=== PATIENT | female | born 1955 | race Hispanic/Latino ===

== ENCOUNTER 2020-11-20 05:36 | Inpatient (IN) | payer SELFPAY ==
[~2020-11-20] VITALS: Ht 165.1 cm; Wt 63.5 kg
[2020-11-20] MEDS ORDERED: CEFAZOLIN SODIUM 1 GM VIAL IVP PRN (11:15)
[2020-11-20 11:38] LABS: HEMATOCRIT 38.7 % (36-48); MEAN CORPUSCULAR HEMOGLOBIN 27.8 pg (27.0-33.0); MEAN CORPUSCULAR HGB CONC 32.3 g/dL (32.0-36.0); RED BLOOD CELL COUNT(AUTO) 4.5 MIL/uL (4.00-5.50); RED CELL DISTRIBUTION WIDTH 13.2 % (11.0-15.5); WHITE BLOOD COUNT (AUTO) 5.5 K/uL (4.8-10.8)
[2020-11-20 11:47] LABS: HEMOGLOBIN A1C 7.8 % (4.0-6.0)
[2020-11-20 11:50] LABS: INR 1.14 (0.85-1.15); PROTHROMBIN TIME 12.3 SEC (9.6-11.6)
[2020-11-20 11:52] LABS: PARTIAL THROMBOPLASTIN TIME 44.5 SEC (26.3-35.5)
[2020-11-20 11:57] LABS: ALBUMIN 3.2 g/dL (3.5-5.0); BILIRUBIN,TOTAL 0.6 mg/dL (0.2-1.0); CREATININE 1.1 mg/dL (0.5-1.5); POTASSIUM 3.7 mmol/L (3.5-5.1); TOTAL PROTEIN, SERUM 6.8 g/dL (6.0-8.3)
[2020-11-20 12:03] VITALS: BP 159/74
[2020-11-20] MEDS ORDERED: HEPARIN 5,000 UNIT VIAL SQ PRN (13:45)
[2020-11-20] MEDS ORDERED: HEPARIN 25,000 UNITS/250ML D5W 250 ML IV SCH (13:45)
[2020-11-20] MEDS ORDERED: HEPARIN 5,000 UNIT VIAL SQ SCH (14:00)
[2020-11-20 16:00] VITALS: BP 148/70
[2020-11-20 20:00] VITALS: BP 166/75
[2020-11-20] MEDS: METOPROLOL TARTRATE 25 MG TAB PO SCH (21:03)
[2020-11-20] MEDS: GUAIFENESIN-DM 200/20 MG 10 ML PO PRN (21:03)
[2020-11-20] MEDS: ATORVASTATIN 40 MG TABLET PO SCH (21:03)
[2020-11-20] MEDS: FUROSEMIDE 20MG VIAL IV SCH (23:38)
[2020-11-21] VITALS (38 sets, daily range): BP systolic 86–173; BP diastolic 37–80
[2020-11-21] MEDS ORDERED: AMINOCAPROIC ACID 5,000MG VIAL 15,000 MG in 0.9% NACL 500ML IV.SOLN 420 ML IV PRN (07:00)
[2020-11-21] MEDS ORDERED: NOREPINEPHRINE BITARTRATE 8 MG in DEXTROSE 5%-WATER 250 ML IV PRN (07:00)
[2020-11-21] MEDS: ASPIRIN 325MG EC TAB PO SCH (07:20)
[2020-11-21] MEDS: METOPROLOL TARTRATE 25 MG TAB PO SCH (07:22)
[2020-11-21] MEDS ORDERED: CEFAZOLIN SODIUM 1 GM VIAL ONE ×2 (07:26→12:46)
[2020-11-21] MEDS ORDERED: PAPAVERINE HCL 30 MG/ML 2ML VIAL ONE (07:26)
[2020-11-21] MEDS ORDERED: NITROGLYCERIN 50MG/D5W 250ML 1 BOT ONE (07:54)
[2020-11-21] MEDS ORDERED: ESMOLOL HCL 10 MG/ML 10 ML VIAL ONE (08:26)
[2020-11-21] MEDS ORDERED: LIDOCAINE PF 100MG/5ML (2%) SYRINGE 5ML ONE (08:26)
[2020-11-21] MEDS ORDERED: PROTAMINE SULFATE 10 MG/ML 25ML VIAL IV ONE (08:26)
[2020-11-21] MEDS ORDERED: HEPARIN 10,000 UNIT/10ML (1,000 UNIT/ML) VIAL ONE ×2 (08:26→10:00)
[2020-11-21] MEDS ORDERED: NOREPINEPHRINE BITARTRATE 1 MG/1 ML ML IV ONE (08:27)
[2020-11-21] MEDS ORDERED: MIDAZOLAM HCL 1 MG/ML 2ML VIAL ONE (08:27)
[2020-11-21] MEDS ORDERED: FENTANYL CITRATE PF 50 MCG/1 ML 20ML VIAL IJ ONE (08:27)
[2020-11-21] MEDS ORDERED: SODIUM BICARB 50MEQ 50ML VIAL 150 ML ONE (08:27)
[2020-11-21] MEDS ORDERED: PROPOFOL 10 MG/ML 20ML VIAL IV ONE (08:27)
[2020-11-21] MEDS ORDERED: EPINEPHRINE PF 1MG AMP ONE (08:27)
[2020-11-21] MEDS ORDERED: AMINOCAPROIC ACID 5,000MG VIAL ONE (08:27)
[2020-11-21] MEDS ORDERED: ROCURONIUM 10MG/1ML SYR 10 MG/ML ML ONE (08:28)
[2020-11-21] MEDS ORDERED: KETAMINE HCL 100 MG/ML 5ML VIAL IJ ONE (08:31)
[2020-11-21] MEDS ORDERED: 0.9%NACL 1000ML 1,000 ML IV ONE (08:32)
[2020-11-21 09:57] LABS: ABG BASE EXCESS 2.1 mmol/L (-2.0-3.0); ABG HCO3 26.8 mmol/L (21.0-28.0); ABG OXYGEN SATURATION 99.2 % (95.0-99.0); ABG PCO2 42 mmHg (32-45)
[2020-11-21] MEDS ORDERED: AMIODARONE 150MG VIAL ONE ×2 (11:17→11:20)
[2020-11-21] MEDS ORDERED: LIDOCAINE 2G/250ML 250 ML IV PRN (11:30)
[2020-11-21] MEDS ORDERED: LIDOCAINE 2G/250ML 250 ML IV ONE (11:35)
[2020-11-21 11:39] LABS: ABG HCO3 14.1 mmol/L (21.0-28.0); ABG OXYGEN SATURATION 98.7 % (95.0-99.0); ABG PCO2 29 mmHg (32-45)
[2020-11-21] MEDS ORDERED: CITRIC ACID/SODIUM CITRATE 30 ML UDCUP ONE (11:52)
[2020-11-21 11:59] LABS: ABG BASE EXCESS 3.3 mmol/L (-2.0-3.0); ABG HCO3 26.3 mmol/L (21.0-28.0); ABG OXYGEN SATURATION 98.5 % (95.0-99.0); ABG PCO2 33 mmHg (32-45)
[2020-11-21] MEDS ORDERED: EPINEPHRINE PF 1MG AMP 10 MG in DEXTROSE 5%-WATER 250 ML IV PRN (12:15)
[2020-11-21] MEDS ORDERED: CALCIUM GLUC 1GM 1 GM in 0.9%NACL 50ML 50 ML IV PRN (12:15)
[2020-11-21] MEDS ORDERED: MAGNESIUM 2GM PREMIX 50ML 50 ML IV PRN (12:15)
[2020-11-21] MEDS ORDERED: ACETAMINOPHEN 650 MG SUPPOSITORY RC PRN (12:15)
[2020-11-21] MEDS ORDERED: ALBUMIN (HUMAN) 5% 250 ML IV PRN (12:15)
[2020-11-21] MEDS ORDERED: GLUCAGON 1MG KIT 1 MG ML IM PRN (12:15)
[2020-11-21] MEDS ORDERED: AMINOCAPROIC ACID 5,000MG VIAL 15,000 MG in 0.9% NACL 250ML 250 ML IV SCH (12:15)
[2020-11-21] MEDS ORDERED: 0.9%NACL 1000ML 1,000 ML IV SCH (12:15)
[2020-11-21] MEDS ORDERED: TRAMADOL HCL 50 MG TABLET PO PRN (12:15)
[2020-11-21] MEDS ORDERED: MORPHINE 2 MG SYG IV PRN ×2 (12:15→13:00)
[2020-11-21] MEDS ORDERED: PROPOFOL 1000 MG/100 ML 100 ML IV PRN (12:15)
[2020-11-21] MEDS ORDERED: MORPHINE 4 MG SYG IV PRN (12:15)
[2020-11-21] MEDS ORDERED: DEXTROSE 50%-WATER 50 ML DISP.SYRIN IV PRN (12:15)
[2020-11-21] MEDS ORDERED: POTASSIUM PHOS 15 mMOL+NS250ML 250 ML IV PRN (12:15)
[2020-11-21] MEDS ORDERED: NOREPINEPHRIN 4MG/NS 250ML 250 ML IV PRN (12:15)
[2020-11-21] MEDS ORDERED: NITROGLYCERIN 50MG/D5W 250ML 250 BOT IV SCH (12:15)
[2020-11-21] MEDS ORDERED: 0.9% NACL 500ML IV.SOLN 500 ML IV SCH (12:15)
[2020-11-21] MEDS ORDERED: 0.9%NACL 10ML VIAL IVP PRN (12:15)
[2020-11-21 13:04] LABS: ABG BASE EXCESS -3.4 mmol/L (-2.0-3.0); ABG HCO3 21.5 mmol/L (21.0-28.0); ABG OXYGEN SATURATION 98.2 % (95.0-99.0); ABG PCO2 38 mmHg (32-45)
[2020-11-21 13:54] LABS: HEMATOCRIT 30.1 % (36-48); MEAN CORPUSCULAR HEMOGLOBIN 28.2 pg (27.0-33.0); MEAN CORPUSCULAR HGB CONC 32.6 g/dL (32.0-36.0); MEAN CORPUSCULAR VOLUME 86.7 fL (79-99); RED BLOOD CELL COUNT(AUTO) 3.47 MIL/uL (4.00-5.50); RED CELL DISTRIBUTION WIDTH 13.2 % (11.0-15.5); WHITE BLOOD COUNT (AUTO) 22.4 K/uL (4.8-10.8)
[2020-11-21 14:05] LABS: INR 1.3 (0.85-1.15); PROTHROMBIN TIME 13.8 SEC (9.6-11.6)
[2020-11-21 14:06] LABS: CREATININE 1.3 mg/dL (0.5-1.5); MAGNESIUM 2.3 mg/dL (1.80-2.40); PARTIAL THROMBOPLASTIN TIME 26.4 SEC (26.3-35.5); PHOSPHORUS 2.5 mg/dL (2.5-4.9)
[2020-11-21 14:08] LABS: POTASSIUM 2.7 mmol/L (3.5-5.1)
[2020-11-21] MEDS: POTASSIUM CHLORIDE 20MEQ/100ML 100 ML IV PRN ×7 (15:41→22:25)
[2020-11-21] MEDS: SODIUM BICARB 50MEQ 50ML VIAL IV PRN ×3 (15:46→16:37)
[2020-11-21] MEDS: EPINEPHRINE PF 1MG AMP 10 MG in 0.9% NACL 250ML 240 ML IV PRN (15:46)
[2020-11-21] MEDS: CEFAZOLIN SODIUM 1 GM VIAL IV SCH (17:24)
[2020-11-21 17:45] LABS: ABG BASE EXCESS -0.1 mmol/L (-2.0-3.0); ABG HCO3 25.1 mmol/L (21.0-28.0); ABG OXYGEN SATURATION 96.5 % (95.0-99.0); ABG PCO2 43 mmHg (32-45)
[2020-11-21] MEDS ORDERED: PHARMACY COMMUNICATION MISC SCH (19:30)
[2020-11-21 19:56] LABS: ABG BASE EXCESS 0.6 mmol/L (-2.0-3.0); ABG HCO3 28.1 mmol/L (21.0-28.0); ABG OXYGEN SATURATION 94.6 % (95.0-99.0); ABG PCO2 60 mmHg (32-45)
[2020-11-21] MEDS: ATORVASTATIN 40 MG TABLET PO SCH (20:08)
[2020-11-21] MEDS: FAMOTIDINE 20MG VIAL IV SCH (20:12)
[2020-11-21] MEDS: FUROSEMIDE 20MG VIAL IV SCH (21:00)
[2020-11-21 21:06] LABS: ABG BASE EXCESS 0.8 mmol/L (-2.0-3.0); ABG HCO3 27.7 mmol/L (21.0-28.0); ABG OXYGEN SATURATION 96.3 % (95.0-99.0); ABG PCO2 56 mmHg (32-45)
[2020-11-21 22:05] LABS: ABG BASE EXCESS 1.3 mmol/L (-2.0-3.0); ABG HCO3 27.4 mmol/L (21.0-28.0); ABG OXYGEN SATURATION 96.8 % (95.0-99.0); ABG PCO2 50 mmHg (32-45)
[2020-11-21] MEDS: INSULIN REGULAR, HUMAN 3ML 100 UNIT in 0.9%NACL 100ML 99 ML IV SCH ×2 (22:24)
[2020-11-21 23:55] LABS: ABG BASE EXCESS 2.3 mmol/L (-2.0-3.0); ABG HCO3 28.6 mmol/L (21.0-28.0); ABG PCO2 53 mmHg (32-45)
[2020-11-22] VITALS (29 sets, daily range): BP systolic 95–276; BP diastolic 39–102
[2020-11-22] MEDS: ACETAMINOPHEN 325 MG TAB PO PRN (00:15)
[2020-11-22] MEDS: CEFAZOLIN SODIUM 1 GM VIAL IV SCH ×2 (01:02→09:46)
[2020-11-22] MEDS: ONDANSETRON 4MG INJ IV PRN ×2 (01:32→07:41)
[2020-11-22 02:06] LABS: ABG BASE EXCESS 0.8 mmol/L (-2.0-3.0); ABG HCO3 26.4 mmol/L (21.0-28.0); ABG OXYGEN SATURATION 96.3 % (95.0-99.0); ABG PCO2 47 mmHg (32-45)
[2020-11-22] MEDS: POTASSIUM CHLORIDE 20MEQ/100ML 100 ML IV PRN (02:14)
[2020-11-22 04:10] LABS: ABG BASE EXCESS 3.1 mmol/L (-2.0-3.0); ABG HCO3 28.4 mmol/L (21.0-28.0); ABG OXYGEN SATURATION 95.9 % (95.0-99.0); ABG PCO2 47 mmHg (32-45)
[2020-11-22 04:11] LABS: HEMATOCRIT 29.6 % (36-48); MEAN CORPUSCULAR HEMOGLOBIN 27.2 pg (27.0-33.0); MEAN CORPUSCULAR HGB CONC 31.1 g/dL (32.0-36.0); MEAN CORPUSCULAR VOLUME 87.6 fL (79-99); RED BLOOD CELL COUNT(AUTO) 3.38 MIL/uL (4.00-5.50); RED CELL DISTRIBUTION WIDTH 13.9 % (11.0-15.5); WHITE BLOOD COUNT (AUTO) 17.7 K/uL (4.8-10.8)
[2020-11-22 04:25] LABS: INR 1.24 (0.85-1.15); PROTHROMBIN TIME 13.3 SEC (9.6-11.6)
[2020-11-22 04:26] LABS: PARTIAL THROMBOPLASTIN TIME 25.6 SEC (26.3-35.5)
[2020-11-22 04:31] LABS: CREATININE 1.3 mg/dL (0.5-1.5); MAGNESIUM 1.8 mg/dL (1.80-2.40); POTASSIUM 4.8 mmol/L (3.5-5.1)
[2020-11-22] MEDS ORDERED: PHARMACY COMMUNICATION MISC SCH ×3 (04:45→21:00)
[2020-11-22 08:50] LABS: ABG HCO3 29.9 mmol/L (21.0-28.0); ABG OXYGEN SATURATION 96.5 % (95.0-99.0); ABG PCO2 46 mmHg (32-45)
[2020-11-22] MEDS: ASPIRIN 325MG EC TAB PO SCH (09:00)
[2020-11-22] MEDS: FAMOTIDINE 20MG VIAL IV SCH ×2 (09:46→20:25)
[2020-11-22] MEDS: INSULIN REGULAR, HUMAN 3ML 100 UNIT in 0.9%NACL 100ML 99 ML IV SCH ×2 (17:40)
[2020-11-22] MEDS: ATORVASTATIN 40 MG TABLET PO SCH (20:25)
[2020-11-22] MEDS: TRAMADOL HCL 50 MG TABLET PO PRN (20:26)
[2020-11-22] MEDS: FUROSEMIDE 20MG VIAL IV SCH (23:03)
[2020-11-22] MEDS: EPINEPHRINE PF 1MG AMP 10 MG in 0.9% NACL 250ML 240 ML IV PRN (23:09)
[2020-11-23] VITALS (25 sets, daily range): BP systolic 106–153; BP diastolic 38–88
[2020-11-23 04:50] LABS: CREATININE 1.3 mg/dL (0.5-1.5); MAGNESIUM 2.7 mg/dL (1.80-2.40); POTASSIUM 4.9 mmol/L (3.5-5.1)
[2020-11-23 04:54] LABS: HEMATOCRIT 26.8 % (36-48); MEAN CORPUSCULAR HEMOGLOBIN 27.8 pg (27.0-33.0); MEAN CORPUSCULAR HGB CONC 30.2 g/dL (32.0-36.0); MEAN CORPUSCULAR VOLUME 92.1 fL (79-99); RED BLOOD CELL COUNT(AUTO) 2.91 MIL/uL (4.00-5.50); RED CELL DISTRIBUTION WIDTH 14.5 % (11.0-15.5); WHITE BLOOD COUNT (AUTO) 18.1 K/uL (4.8-10.8)
[2020-11-23] MEDS ORDERED: DEXTROSE 50%-WATER 50 ML DISP.SYRIN IV PRN (07:45)
[2020-11-23] MEDS ORDERED: GLUCAGON 1MG KIT 1 MG ML IM PRN (07:45)
[2020-11-23] MEDS ORDERED: ENOXAPARIN SODIUM 30 MG/0.3 ML SQ ONE (08:25)
[2020-11-23] MEDS ORDERED: FUROSEMIDE 20 MG TABLET ONE (08:26)
[2020-11-23] MEDS ORDERED: MIDODRINE HCL 5 MG TABLET ONE (08:27)
[2020-11-23] MEDS ORDERED: FAMOTIDINE 20MG TAB ONE (08:28)
[2020-11-23] MEDS ORDERED: METO25 PO (08:30)
[2020-11-23] MEDS: ASPIRIN 325MG EC TAB PO SCH (08:36)
[2020-11-23] MEDS: MIDODRINE HCL 5 MG TABLET PO SCH ×3 (08:38→20:43)
[2020-11-23] MEDS: ACETAMINOPHEN 325 MG TAB PO PRN (08:39)
[2020-11-23] MEDS: FUROSEMIDE 20 MG TABLET PO SCH ×2 (08:40→18:33)
[2020-11-23] MEDS: ENOXAPARIN SODIUM 30 MG/0.3 ML SQ SCH (08:41)
[2020-11-23] MEDS ORDERED: FAMOTIDINE 20MG TAB PO SCH (09:00)
[2020-11-23] MEDS: INSULIN HUMULIN R 100 UNIT/ML 3ML SQ SCH ×3 (11:30→20:23)
[2020-11-23] MEDS: TRAMADOL HCL 50 MG TABLET PO PRN (19:50)
[2020-11-23] MEDS: ATORVASTATIN 40 MG TABLET PO SCH (20:09)
[2020-11-23] MEDS: FUROSEMIDE 20MG VIAL IV SCH (23:38)
[2020-11-24] VITALS (22 sets, daily range): BP systolic 110–151; BP diastolic 45–70
[2020-11-24] MEDS ORDERED: AMIODARONE 900MG VIAL IV ONE (00:05)
[2020-11-24] MEDS ORDERED: AMIODARONE 150MG VIAL ONE (00:06)
[2020-11-24] MEDS ORDERED: 0.9%NACL 100ML 100 ML IV ONE (00:09)
[2020-11-24] MEDS ORDERED: AMIODARONE 900MG VIAL 150 MG in DEXTROSE 5%-WATER 100 ML IV SCH (00:15)
[2020-11-24] MEDS ORDERED: AMIODARONE 900MG VIAL 900 MG in DEXTROSE 5%-WATER 500 ML IV SCH (00:15)
[2020-11-24 04:36] LABS: HEMATOCRIT 24.5 % (36-48); MEAN CORPUSCULAR HEMOGLOBIN 28.3 pg (27.0-33.0); MEAN CORPUSCULAR HGB CONC 31.4 g/dL (32.0-36.0); MEAN CORPUSCULAR VOLUME 90.1 fL (79-99); RED BLOOD CELL COUNT(AUTO) 2.72 MIL/uL (4.00-5.50); WHITE BLOOD COUNT (AUTO) 14.8 K/uL (4.8-10.8)
[2020-11-24 04:44] LABS: CREATININE 1.4 mg/dL (0.5-1.5); POTASSIUM 4.5 mmol/L (3.5-5.1)
[2020-11-24] MEDS: INSULIN HUMULIN R 100 UNIT/ML 3ML SQ SCH ×4 (06:13→21:07)
[2020-11-24] MEDS: AMIODARONE 200 MG TABLET PO SCH ×2 (09:00→21:05)
[2020-11-24] MEDS: ENOXAPARIN SODIUM 30 MG/0.3 ML SQ SCH (09:19)
[2020-11-24] MEDS: ASPIRIN 325MG EC TAB PO SCH (09:20)
[2020-11-24] MEDS: METOPROLOL TARTRATE 25 MG TAB PO SCH ×2 (09:20→21:05)
[2020-11-24] MEDS: FUROSEMIDE 20 MG TABLET PO SCH ×2 (09:20→16:56)
[2020-11-24] MEDS: FUROSEMIDE 20MG VIAL IV SCH (15:47)
[2020-11-24] MEDS: ATORVASTATIN 40 MG TABLET PO SCH (21:05)
[2020-11-25 00:07] VITALS: BP 154/67
[2020-11-25 04:26] VITALS: BP 158/67
[2020-11-25 05:06] LABS: MEAN CORPUSCULAR HEMOGLOBIN 27.8 pg (27.0-33.0); MEAN CORPUSCULAR HGB CONC 31.9 g/dL (32.0-36.0); RED BLOOD CELL COUNT(AUTO) 2.99 MIL/uL (4.00-5.50); RED CELL DISTRIBUTION WIDTH 13.7 % (11.0-15.5); WHITE BLOOD COUNT (AUTO) 9.5 K/uL (4.8-10.8)
[2020-11-25 05:15] LABS: CREATININE 1.1 mg/dL (0.5-1.5); POTASSIUM 3.5 mmol/L (3.5-5.1)
[2020-11-25] MEDS: INSULIN HUMULIN R 100 UNIT/ML 3ML SQ SCH ×4 (07:30→20:47)
[2020-11-25 08:00] VITALS: BP 139/65
[2020-11-25] MEDS: METOPROLOL TARTRATE 25 MG TAB PO SCH ×3 (08:18→20:01)
[2020-11-25] MEDS: FUROSEMIDE 20 MG TABLET PO SCH ×2 (08:18→16:58)
[2020-11-25] MEDS: ASPIRIN 325MG EC TAB PO SCH (08:18)
[2020-11-25] MEDS: ENOXAPARIN SODIUM 30 MG/0.3 ML SQ SCH (08:19)
[2020-11-25] MEDS: AMIODARONE 200 MG TABLET PO SCH ×2 (08:19→20:00)
[2020-11-25 12:00] VITALS: BP 123/51
[2020-11-25 16:00] VITALS: BP 118/59
[2020-11-25] MEDS: GUAIFENESIN-DM 200/20 MG 10 ML PO PRN (16:58)
[2020-11-25] MEDS: POTASSIUM CHLORIDE 20MEQ/100ML 100 ML IV PRN (16:58)
[2020-11-25 20:00] VITALS: BP 141/65
[2020-11-25] MEDS: ATORVASTATIN 40 MG TABLET PO SCH (20:00)
[2020-11-25] MEDS: FUROSEMIDE 20MG VIAL IV SCH (23:15)
[2020-11-26] VITALS: BP 133/66
[2020-11-26 04:00] VITALS: BP 150/71
[2020-11-26 05:58] LABS: CREATININE 0.9 mg/dL (0.5-1.5); POTASSIUM 3.5 mmol/L (3.5-5.1)
[2020-11-26] MEDS: INSULIN HUMULIN R 100 UNIT/ML 3ML SQ SCH ×4 (07:06→22:00)
[2020-11-26] MEDS: ASPIRIN 325MG EC TAB PO SCH (07:29)
[2020-11-26] MEDS: ENOXAPARIN SODIUM 30 MG/0.3 ML SQ SCH (07:29)
[2020-11-26] MEDS: METOPROLOL TARTRATE 25 MG TAB PO SCH ×3 (07:30→20:10)
[2020-11-26] MEDS: AMIODARONE 200 MG TABLET PO SCH ×2 (07:30→20:10)
[2020-11-26] MEDS: FUROSEMIDE 20 MG TABLET PO SCH ×2 (07:30→16:05)
[2020-11-26 08:00] VITALS: BP 144/70
[2020-11-26 12:00] VITALS: BP 120/59
[2020-11-26 16:00] VITALS: BP 143/69
[2020-11-26] MEDS: GUAIFENESIN-DM 200/20 MG 10 ML PO PRN (16:05)
[2020-11-26] MEDS: ACETAMINOPHEN 325 MG TAB PO PRN (20:10)
[2020-11-26] MEDS: ATORVASTATIN 40 MG TABLET PO SCH (20:10)
[2020-11-26 22:44] VITALS: BP 131/60
[2020-11-26] MEDS: FUROSEMIDE 20MG VIAL IV SCH (23:24)
[2020-11-27] VITALS (7 sets, daily range): BP systolic 126–161; BP diastolic 58–75
[2020-11-27] MEDS: INSULIN HUMULIN R 100 UNIT/ML 3ML SQ SCH ×4 (07:01→20:40)
[2020-11-27] MEDS: AMIODARONE 200 MG TABLET PO SCH ×2 (07:12→20:37)
[2020-11-27] MEDS: ASPIRIN 325MG EC TAB PO SCH (07:12)
[2020-11-27] MEDS: FUROSEMIDE 20 MG TABLET PO SCH ×2 (07:12→16:17)
[2020-11-27] MEDS: METOPROLOL TARTRATE 25 MG TAB PO SCH ×2 (07:12→20:37)
[2020-11-27] MEDS: ENOXAPARIN SODIUM 30 MG/0.3 ML SQ SCH (07:13)
[2020-11-27] MEDS: ATORVASTATIN 40 MG TABLET PO SCH (20:37)
[2020-11-28] MEDS: ACETAMINOPHEN 325 MG TAB PO PRN (03:09)
[2020-11-28 05:00] VITALS: BP 118/99
[2020-11-28] MEDS: INSULIN HUMULIN R 100 UNIT/ML 3ML SQ SCH ×4 (07:30→20:56)
[2020-11-28] MEDS: FUROSEMIDE 20 MG TABLET PO SCH ×2 (08:45→16:27)
[2020-11-28] MEDS: ASPIRIN 325MG EC TAB PO SCH (08:45)
[2020-11-28] MEDS: AMIODARONE 200 MG TABLET PO SCH ×2 (08:46→20:51)
[2020-11-28] MEDS: ENOXAPARIN SODIUM 30 MG/0.3 ML SQ SCH (08:47)
[2020-11-28] MEDS: METOPROLOL TARTRATE 25 MG TAB PO SCH ×2 (09:00→20:51)
[2020-11-28 11:19] LABS: HEMATOCRIT 29.2 % (36-48); MEAN CORPUSCULAR HEMOGLOBIN 27.8 pg (27.0-33.0); MEAN CORPUSCULAR HGB CONC 32.2 g/dL (32.0-36.0); MEAN CORPUSCULAR VOLUME 86.4 fL (79-99); PLATELET COUNT (AUTO) 404 K/uL (130-400); RED BLOOD CELL COUNT(AUTO) 3.38 MIL/uL (4.00-5.50); RED CELL DISTRIBUTION WIDTH 14.6 % (11.0-15.5); WHITE BLOOD COUNT (AUTO) 11.4 K/uL (4.8-10.8)
[2020-11-28 11:25] LABS: CREATININE 1.1 mg/dL (0.5-1.5); POTASSIUM 3.7 mmol/L (3.5-5.1)
[2020-11-28 11:29] LABS: ALBUMIN 2.7 g/dL (3.5-5.0); BILIRUBIN,TOTAL 0.6 mg/dL (0.2-1.0); TOTAL PROTEIN, SERUM 6.2 g/dL (6.0-8.3)
[2020-11-28 11:41] LABS: LYMPHOCYTES % (MANUAL) 15 % (22-44); MAN.DIFF COMMENT-IMPRESSION MANUAL DIFFERENTIAL; MONOCYTES % (MANUAL) 6 % (2-9); PLATELET MORPHOLOGY COMMENT SLIGHT INCREASED; SEGMENTED NEUTROPHILS % 79 % (40-70)
[2020-11-28 16:00] VITALS: BP 134/33
[2020-11-28] MEDS ORDERED: AMIO200T44 PO (17:10)
[2020-11-28] MEDS ORDERED: ASPI-891 PO (17:10)
[2020-11-28] MEDS ORDERED: ATOR40TA69 PO (17:10)
[2020-11-28] MEDS ORDERED: FURO20TA6 PO (17:10)
[2020-11-28] MEDS ORDERED: METO25 PO (17:10)
[2020-11-28 20:35] VITALS: BP 151/76
[2020-11-28] MEDS: ATORVASTATIN 40 MG TABLET PO SCH (20:51)
== END 2020-11-28 20:55 | disposition home or self-care (01) | DRG 235 ==
LOC: 4DH 10:22 → 2CV 11-21 08:59 → PAH.CVR 11-21 13:44 → 2CV 11-21 14:25 → 2CH 11-22 16:56 → 4AH 11-24 18:00
PROVIDERS: ADMIT Thoracic Surgery (Cardiothoracic Vascular Surgery); ATTEND Thoracic Surgery (Cardiothoracic Vascular Surgery)
PROC: 5A09357 Assistance with Respiratory Ventilation, Less than 24 Consecutive Hours, Continuous Positive Airway Pressure (ICD-10-PCS; 2020-11-18)
PROC: 02120AW Bypass Coronary Artery, Three Arteries from Aorta with Autologous Arterial Tissue, Open Approach (ICD-10-PCS; principal; 2020-11-21 09:08)
PROC: 02100Z9 Bypass Coronary Artery, One Artery from Left Internal Mammary, Open Approach (ICD-10-PCS; 2020-11-21 09:08)
PROC: 5A02210 Assistance with Cardiac Output using Balloon Pump, Continuous (ICD-10-PCS; 2020-11-21 09:08)
PROC: 06BP4ZZ Excision of Right Saphenous Vein, Percutaneous Endoscopic Approach (ICD-10-PCS; 2020-11-21 09:08)
DX: I25.10 Atherosclerotic heart disease of native coronary artery without angina pectoris (principal); I49.01 Ventricular fibrillation; I50.21 Acute systolic (congestive) heart failure; I42.9 Cardiomyopathy, unspecified; I11.0 Hypertensive heart disease with heart failure; E11.9 Type 2 diabetes mellitus without complications; Z82.49 Family history of ischemic heart disease and other diseases of the circulatory system; E78.00 Pure hypercholesterolemia, unspecified; E78.5 Hyperlipidemia, unspecified; I48.91 Unspecified atrial fibrillation; Z79.899 Other long term (current) drug therapy; R53.81 Other malaise
CPT/HCPCS: 36415; 71045; 80048; 80053; 80061; 82435; 82803; 82947; 82948; 83036; 83605; 83735; 83880; 84100; 84132; 84295; 85018; 85025; 85027; 85347; 85384; 85610; 85730; 86850; 86900; 86901; 86923; 93005; 93880; 94010; 94150; 94660; 97039; A7048; G0378; J0171; J0282; J0610; J0690; J1644; J1650; J1815; J1940; J2001; J2250; J2405; J2440; J2704; J2720; J3010; J3475; J3480; J3490; J7030; J7040; J7050; J7060; J7120; P9045